=== PATIENT | female | born 1955 | race Caucasian/White ===

== ENCOUNTER → 2021-10-19 | Outpatient (CLI) | payer MEDICARE ==
[~2021-10-19] MED LIST: ADVAIR 500-501 EACH INH; ALLEGRA ALLERG180 MG PO; ASPIR-LOW81 MG PO; AZITHROMYCIN250 MG PO; CEFUROXIME500 MG PO; FISH OIL 1,2001 EACH PO; IMODIUM CAP 2 MG2 MG PO; KLOR-CON 1010 MEQ PO; LIPITOR TAB 2020 MG PO; LISINOPRIL5 MG PO; MEDROL DOSEPAK 24 MG PO; NEXIUM40 MG PO; NORCO 10-325 T1 EACH PO; PAROXETINE HCL10 MG PO; PROAIR HFA8.5 GM INH; RESCUE INHALER; ROBITUSSIN DM473 ML PO; SUPER B COMPLE150 MG PO; TORSEMIDE20 MG PO; VITAMIN C 500500 MG PO; VITAMIN D35000 UNIT PO; ZOFRAN4 MG PO
== END ==
LOC: ECHO 11:43 → NM 13:00
DX: I20.9 Angina pectoris, unspecified (principal); R07.9 Chest pain, unspecified; R06.02 Shortness of breath; I51.7 Cardiomegaly
CPT/HCPCS: ECHO; 78452; 93017; 93306; A9502; J2785